=== PATIENT | male | born 1945 | race Caucasian/White ===

== ENCOUNTER 2021-05-17 14:47 | Outpatient (CLI) | payer MEDICARE, OTHER | END 2021-05-17 14:48 | disposition home or self-care (01) | LOC: BICCT 14:47 | PROVIDERS: ATTEND Urology | DX: N13.2 Hydronephrosis with renal and ureteral calculous obstruction (principal); I71.4 Abdominal aortic aneurysm, without rupture | CPT/HCPCS: 74176 ==

== ENCOUNTER 2021-05-25 13:19 | Outpatient (CLI) | payer MEDICARE, OTHER ==
[2021-05-25 15:10] LABS: Bilirubin Neg (Negative); Blood, Urine 10 (Negative); Clarity Clear (Clear); Glucose, Urine (Dipstick) Normal (Negative); Ketone, Urine Negative (Negative); Leukocyte 25 (Negative); Nitrite Negative (Negative); Protein, Urine (Dipstick) Negative (Neg-Trace); Specific Gravity, Urine 1.015 (1.002-1.036); Urobilinogen Normal mg/dL (Less than 2)
[2021-05-25 15:26] LABS: #Basophils 0.1 10x3/uL (0.0-0.2); #Eosinphils 0.2 10x3/uL (0.0-0.5); #Monocytes 0.8 10x3/uL (0.0-1.1); #Neutrophils 5.8 10x3/uL (1.5-8.4); %Basophils 0.6 % (0.0-2.0); %Eosinophils 1.9 % (0.0-6.0); %Lymphocytes 22.7 % (18.0-47.0); %Neutrophils 65.6 % (40.0-75.0); Hemoglobin 14.5 g/dL (13.5-17.5); Mean Corpuscular HGB CONC 34.2 g/dL (32.0-36.0); Mean Corpuscular Hemoglobin 31.5 pg (27.0-33.0); Mean Corpuscular Volume 92.2 fl (81.2-95.1); Mean Platelet Volume 10.8 fl (7.4-10.4); Platelet Count 216 10x3/uL (150-450); RBC Distribution Width 12.2 % (11.5-14.5); White Blood Cell (WBC) Count 8.9 10x3/uL (3.5-10.5)
[2021-05-25 15:42] LABS: Anion Gap 16 mmol/L (10-20); BUN (Urea Nitrogen) 24 mg/dL (8.4-25.7); Calc. Creatinine Clearance 0 mL/min (70-130); Calcium 9.7 mg/dL (7.8-10.44); Carbon Dioxide 23 mmol/L (23-31); Chloride 107 mmol/L (98-107); Glucose 94 mg/dL (83-110); Potassium 4.3 mmol/L (3.5-5.1); Sodium 142 mmol/L (136-145)
[2021-05-25 16:11] LABS: Bacteria/HPF Rare-Few HPF (None Seen); RBC/HPF 0-3 HPF (0-3); Squamous Epithelial 0-3 HPF (0-3); WBC/HPF 0-3 HPF (0-3)
[2021-05-26 17:05] LABS: SARS-CoV-2 PCR by NAA Not Detected (NotDetected)
== END 2021-05-25 13:20 | disposition home or self-care (01) ==
LOC: LABBT 13:19
PROVIDERS: ATTEND Urology
DX: Z01.812 Encounter for preprocedural laboratory examination (principal); N52.01 Erectile dysfunction due to arterial insufficiency; N20.0 Calculus of kidney; N40.2 Nodular prostate without lower urinary tract symptoms; N13.30 Unspecified hydronephrosis; Z20.822 Contact with and (suspected) exposure to COVID-19; Z87.442 Personal history of urinary calculi
CPT/HCPCS: 80048; 81001; 85025; U0003; U0005

== ENCOUNTER 2021-05-29 08:56 | Day surgery (SDC) | payer MEDICARE, OTHER ==
[2021-05-29] MEDS ORDERED: Iothalamate Meglumine 60% 30 ML VIAL FS ONE (10:16)
[2021-05-29] MEDS ORDERED: Fentanyl 100 MCG/2 ML VIAL ONE (10:21)
[2021-05-29] MEDS ORDERED: Levofloxacin 500 mg/D5W 100 ml Premix Bag ONE (10:21)
[2021-05-29] MEDS ORDERED: Ondansetron PF 4 MG/2 ML Vial ONE (10:38)
[2021-05-29] MEDS ORDERED: Dexamethasone 20 MG/5 ML VIAL ONE (10:38)
[2021-05-29] MEDS ORDERED: Metoclopramide HCl 10 MG/2 ML VIAL ONE (10:38)
[2021-05-29] MEDS ORDERED: PHENYLEPHRINE-NS 100 MCG/ML 10 ML SYRINGE ONE (10:38)
[2021-05-29] MEDS ORDERED: ePHEDrine Sulfate 50 MG/10 ML VIAL ONE (10:38)
[2021-05-29] MEDS ORDERED: PROPOFOL 200 MG/20 ML VIAL ONE (10:38)
[2021-05-29] MEDS ORDERED: Lidocaine 1% PF 5 ML VIAL ONE (10:38)
[2021-05-29] MEDS ORDERED: Oxybutynin 5 MG TAB ONE (11:33)
[2021-05-29] MEDS ORDERED: Phenazopyridine HCl 100 MG TAB ONE (11:33)
== END 2021-05-29 13:23 | disposition home or self-care (01) ==
LOC: SDC 08:56
PROVIDERS: ATTEND Urology
PROC: 0TC48ZZ Extirpation of Matter from Left Kidney Pelvis, Via Natural or Artificial Opening Endoscopic (ICD-10-PCS; principal; 2021-05-29)
PROC: 0T778DZ Dilation of Left Ureter with Intraluminal Device, Via Natural or Artificial Opening Endoscopic (ICD-10-PCS; 2021-05-29)
DX: N13.2 Hydronephrosis with renal and ureteral calculous obstruction (principal); N52.01 Erectile dysfunction due to arterial insufficiency; N40.2 Nodular prostate without lower urinary tract symptoms; I10 Essential (primary) hypertension; E78.5 Hyperlipidemia, unspecified; I73.9 Peripheral vascular disease, unspecified; Z79.02 Long term (current) use of antithrombotics/antiplatelets; Z79.82 Long term (current) use of aspirin; Z79.899 Other long term (current) drug therapy; Z95.5 Presence of coronary angioplasty implant and graft
CPT/HCPCS: 74420; 82365; 88300; C2617; J1100; J1956; J2405; J2704; J2765; J3010

== ENCOUNTER 2021-09-12 14:52 | Outpatient (CLI) | payer MEDICARE, OTHER | END 2021-09-12 14:53 | disposition home or self-care (01) | LOC: BICULT 14:52 | PROVIDERS: ATTEND Urology | DX: N20.0 Calculus of kidney (principal); N28.89 Other specified disorders of kidney and ureter | CPT/HCPCS: 76770 ==

== ENCOUNTER 2025-08-02 08:16 | Outpatient (CLI) | payer MEDICARE, OTHER | END 2025-08-02 08:17 | disposition home or self-care (01) | LOC: NM 08:16 | PROVIDERS: ATTEND Radiology Radiation Oncology | DX: C61 Malignant neoplasm of prostate (principal); C79.51 Secondary malignant neoplasm of bone | CPT/HCPCS: 78306; A9503 ==